=== PATIENT | female | born 1935 | race Caucasian/White ===

== ENCOUNTER 2020-07-22 08:30 | Emergency (ER) | payer MEDICARE ==
[~2020-07-22] VITALS: Ht 167 cm; Wt 72.0 kg
--- NOTE | 2020-07-22 08:46 | ED Fall/Injury ---
General Chief Complaint: Trauma-Non Activation Stated Complaint: FELL Source: patient Exam Limitations: no limitations History of Present Illness Date Seen by Provider: Jul 22, 2020 Time Seen by Provider: 08:25 Initial Comments Patient presents ER by private conveyance with her son and grandson and chief complaint that she was found after an unwitnessed fall at [facility] by staff having likely gotten tangled in her sheets. Patient states she just had to get up. She has baseline dementia and is a poor historian. She is not on blood thinners but does take an aspirin daily. She has not had any of her medicines this morning. She is known to Dr. Garduno and has an appointment later this afternoon with her for routine checkup. No mention of recent illness. She has obvious bruising and swelling of her face as well as bandaged abrasions on her elbows and knees. Son states that at baseline she repeats herself a lot and recognizes faces most of the time. She uses a walker sometimes although her son states that she needs to use it all the time. Patient denies any significant pain and declined any Tylenol from staff this morning. Allergies and Home Medications Allergies Coded Allergies: No Known Drug Allergies (Unverified , 07/22/20) Patient Home Medication List Home Medication List Reviewed: Yes Review of Systems Review of Systems Constitutional: No chills, No diaphoresis Eyes: Denies Blindness, Denies Drainage Ears, Nose, Mouth, Throat: denies ear pain, denies ear discharge Respiratory: No cough, No short of breath Cardiovascular: No chest pain, No edema Gastrointestinal: No abdominal pain, No nausea Genitourinary: No discharge, No dysuria Musculoskeletal: No back pain, No joint pain Past Qhntjxt-Twhdro-Antywj Hx Patient Social History Alcohol Use: Denies Use Smoking Status: Never a Smoker Physical Exam Vital Signs Vital Signs - First Documented 07/22/20 08:30 Temp 36.9 Pulse 89 Resp 20 B/P (MAP) 145/72 (96) Pulse Ox 99 Capillary Refill : Height, Weight, BMI Height: '" Weight: lbs. oz. kg; BMI Method: General Appearance: WD/WN, no apparent distress HEENT: PERRL/EOMI (4 mm brisk on the right side, left eye unable to examine because of swelling), other (Significant facial hematoma especially over the left eye closing the eyelids shut and frontal scalp.) Neck: non-tender, full range of motion, supple, normal inspection Cardiovascular: normal peripheral pulses, regular rate, rhythm, no edema Respiratory: chest non-tender, lungs clear, normal breath sounds, no respiratory distress, no accessory muscle use Peripheral Pulses: 2+ Radial Pulses (R), 2+ Radial Pulses (L) Gastrointestinal: normal bowel sounds, non tender, soft Extremities: normal range of motion, non-tender, normal capillary refill, other (Ecchymoses over the left elbow and left dorsal hand. Abrasions over the right elbow about 1 cm diameter and similar sized abrasions over bilateral anterior patella.) Neurologic/Psychiatric: chargeback specialist II-XII nml as tested, no motor/sensory deficits, alert, normal mood/affect, other (Oriented to self) Skin: warm/dry, ecchymosis (Face and left elbow and left dorsum of the hand), other (Minor abrasions over the right elbow and anterior bilateral knees) Antoine Coma Score Best Eye Response: (4) Open Spontaneously Best Verbal Response: (4) Confused Conversation Best Motor Response: (6) Obeys Commands [place] Total: 14 Progress/Results/Core Measures Results/Orders My Orders Orders - LULU RODGERS Ct Head/Face/Cervical Wo (07/22/20 08:40) Vital Signs/I&O 07/22/20 08:30 Temp 36.9 Pulse 89 Resp 20 B/P (MAP) 145/72 (96) Pulse Ox 99 Progress Progress Note : Time: 08:47 Progress Note She has full range of motion, no crepitus or significant tenderness over her joints that are involved with abrasions or ecchymoses. We discussed doing imaging of her head, maxillofacial and cervical spine with the children who are her power of trial attorney. They agree with this plan. Patient is not having any significant planes so we will give her an ice pack for the swelling of her face and discussed conservative management. She has declined anything else for pain. Diagnostic Imaging Diagonstic Imaging: CT Plain Films/CT/US/NM/MRI: facial bones, c-spine, head Comments NAME: PAULINE ALANISDamaris Lake [facility] REC#: [id number] PT STATUS: REG ER : 1935 PHYSICIAN: LULU RODGERS MD ADMIT DATE: 07/22/20/ER Signed Date of Exam:07/22/20 CT HEAD/FACE/CERVICAL WO PROCEDURE: CT head, face, and cervical spine without contrast. TECHNIQUE: Multiple contiguous axial images were obtained through the head, neck, and facial bones without the use of intravenous contrast. Sagittal and coronal reformations through the cervical spine and facial bones were also performed. Auto Exposure Controls were utilized during the CT exam to meet ALARA standards for radiation dose reduction. INDICATION: Found down. Facial bruising. Confused. Neck pain. COMPARISON: None. FINDINGS: CT head: The ventricles and cortical sulci are prominent. There is no midline shift or mass-effect. No acute intracranial hemorrhage is seen. There is no CT evidence of acute territorial ischemia. Scattered chronic microvascular disease is seen in the periventricular and subcortical white matter. No focal masses or collections are present. The calvarium is intact. CT face: Hematoma is seen overlying the forehead and left orbit. Hyperattenuation within this hematoma in the forehead left of midline is suggestive of active hemorrhage. No acute facial fractures are visualized. The mandible, zygomatic arches, and pterygoid plates are intact. The bilateral TMJ demonstrate degenerative changes without evidence of dislocation. No nasal bone fractures. The bony nasal septum is slightly deviated to the left without fracture. The paranasal sinuses and mastoid air cells are well pneumatized. The globes and orbits are symmetric and unremarkable. No evidence of orbital rim fracture. The patient is edentulous. CT cervical spine: No acute fracture or dislocation is seen in the cervical spine. No focal osseous lesions. Vertebral body heights are well-maintained. The craniocervical junction is well-maintained. Soft tissues of the neck are unremarkable. The included lung apices are clear. IMPRESSION: 1. No hemorrhage or focal intra-axial mass. No CT evidence of large acute territorial ischemia. 2. No acute fracture or dislocation in the cervical spine. 3. Large scalp hematoma overlying the forehead and left orbit with likely active hemorrhage in the forehead left of midline. No associated facial fractures. 4. Generalized parenchymal volume loss with chronic microvascular disease. Dictated by: Dictated on workstation # [id number] Dict: 07/22/2025 Trans: 07/22/20 0945 [facility] [id number] Interpreted by: MIGEL CONRAD DO Electronically signed by: MIGEL CONRAD DO 07/22/20 0945 Reviewed: Reviewed by Me Departure Impression Primary Impression: Fall Qualified Codes: W19.XXXA - Unspecified fall, initial encounter Additional Impression: Traumatic hematoma of face Qualified Codes: S00.83XA - Contusion of other part of head, initial encounter Disposition: 01 HOME, SELF-CARE Condition: Stable Departure-Patient Inst. Decision time for Depature: 09:58 Referrals: BRENNAN GARDUNO MD (PCP/Family) Primary Care Physician Patient Instructions: Minor Head Injury, Adult ED, Contusion (DC) Add. Discharge Instructions: Apply ice for 20 minutes every 2 hours while awake for the first 3 days. Keep the abrasions clean with soap and water and apply a thin layer of Vaseline or triple antibiotic ointment before bandaging them and changing this daily. Tylenol 650 mg every 6 hours as necessary for pain. Compression bandages over the bruises as necessary for pain and swelling. All discharge instructions reviewed with patient and/or family. Voiced understanding. LULU RODGERS Jul 22, 2020 08:46
--- NOTE | 2020-07-22 09:38 | Diagnostic Imaging Report ---
PROCEDURE: CT head, face, and cervical spine without contrast. TECHNIQUE: Multiple contiguous axial images were obtained through the head, neck, and facial bones without the use of intravenous contrast. Sagittal and coronal reformations through the cervical spine and facial bones were also performed. Auto Exposure Controls were utilized during the CT exam to meet ALARA standards for radiation dose reduction. INDICATION: Found down. Facial bruising. Confused. Neck pain. COMPARISON: None. FINDINGS: CT head: The ventricles and cortical sulci are prominent. There is no midline shift or mass-effect. No acute intracranial hemorrhage is seen. There is no CT evidence of acute territorial ischemia. Scattered chronic microvascular disease is seen in the periventricular and subcortical white matter. No focal masses or collections are present. The calvarium is intact. CT face: Hematoma is seen overlying the forehead and left orbit. Hyperattenuation within this hematoma in the forehead left of midline is suggestive of active hemorrhage. No acute facial fractures are visualized. The mandible, zygomatic arches, and pterygoid plates are intact. The bilateral TMJ demonstrate degenerative changes without evidence of dislocation. No nasal bone fractures. The bony nasal septum is slightly deviated to the left without fracture. The paranasal sinuses and mastoid air cells are well pneumatized. The globes and orbits are symmetric and unremarkable. No evidence of orbital rim fracture. The patient is edentulous. CT cervical spine: No acute fracture or dislocation is seen in the cervical spine. No focal osseous lesions. Vertebral body heights are well-maintained. The craniocervical junction is well-maintained. Soft tissues of the neck are unremarkable. The included lung apices are clear. IMPRESSION: 1. No hemorrhage or focal intra-axial mass. No CT evidence of large acute territorial ischemia. 2. No acute fracture or dislocation in the cervical spine. 3. Large scalp hematoma overlying the forehead and left orbit with likely active hemorrhage in the forehead left of midline. No associated facial fractures. 4. Generalized parenchymal volume loss with chronic microvascular disease. Dictated by: Dictated on workstation # [id number]
[2020-07-22 10:12] VITALS: BP 135/70
== END 2020-07-22 10:11 | disposition home or self-care (01) ==
LOC: ER 08:38
DX: S00.83XA Contusion of other part of head, initial encounter (principal); S50.02XA Contusion of left elbow, initial encounter; S80.212A Abrasion, left knee, initial encounter; S80.211A Abrasion, right knee, initial encounter; R40.2410 Glasgow coma scale score 13-15, unspecified time; W19.XXXA Unspecified fall, initial encounter
CPT/HCPCS: 70450; 70486; 72125

== ENCOUNTER → 2020-08-31 | Outpatient (CLI) | payer MEDICARE, OTHER ==
--- NOTE | 2020-08-31 12:57 | Diagnostic Imaging Report ---
CLINICAL INDICATION: Patient with memory loss, slurred speech. Patient unable to answer questions. EXAM: Axial CT scan of the brain without IV contrast with coronal and sagittal reformatted images. Auto Exposure Controls were utilized during the CT exam to meet ALARA standards for radiation dose reduction. COMPARISON: CT scan of the head, face, and cervical spine without contrast dated 07/22/2020. FINDINGS: There is motion artifact limiting some portions of this exam. There is no evidence of acute cerebral infarct, intracranial hemorrhage, or gross mass effect. Stable brain parenchymal volume loss. Stable subtle areas of low-attenuation white matter changes involving both cerebral hemispheres, likely representing mild chronic small vessel ischemic disease. There is normal petersen-white matter distinction. There is no significant midline shift or herniation. There is no evidence of hydrocephalus. The basal cisterns are unremarkable. The previously seen extracranial soft tissue swelling and hematoma in the left forehead and left periorbital region have predominantly resolved with minimal thickening in the left forehead region, which may represent residual resolving swelling or scarring. There is no skull fracture. Skull, extracranial soft tissue, and orbits are unremarkable. The paranasal sinuses are unremarkable. Temporal bones show no significant abnormality. IMPRESSION: 1: There is no evidence of acute intracranial process. 2: There is near-complete resolution of the previously seen extracranial soft tissue swelling/hematoma in the left forehead and left periorbital region. 3: Otherwise, stable CT scan of the brain with age-related changes. Dictated by: Dictated on workstation # [id number]
== END ==
LOC: RAD 12:30
PROVIDERS: ATTEND Nurse Practitioner Family
DX: R41.3 Other amnesia (principal); R47.81 Slurred speech
CPT/HCPCS: 70450